=== PATIENT | female | born 1985 | race Caucasian/White ===

== ENCOUNTER 2022-08-03 11:45 | Inpatient (IN) ==
[2022-08-03] MEDS ORDERED: Lactated Ringers 1000 ml BAG 1,000 ML IV ONE ×2 (12:35→19:15)
[2022-08-03] MEDS ORDERED: Promethazine INJ(RESTRICTED) 25 MG/ML 1 ml VIAL IV PRN (12:35)
[2022-08-03] MEDS ORDERED: Nalbuphine 10 MG/ML 1 ML VIAL IV PRN (12:35)
[2022-08-03] MEDS ORDERED: Buffered Lidocaine 1% SYRIN 1 ml INTRADERM ONE (12:35)
[2022-08-03] MEDS ORDERED: ceFAZolin 2 GM PREMIX 2 GM/50 ML BAG IVPB ONE (12:41)
[2022-08-03] MEDS ORDERED: Oxytocin in LR 20,000 MILLI.UNIT/1,000 ML BAG IV SCH ×2 (12:45→23:45)
[2022-08-03 13:08] LABS: ABS Eosinophils 0.1 10^3/uL (0.0-0.5); ABS Lymphocytes 1.7 10^3/uL (1.0-4.8); ABS Monocytes 0.5 10^3/uL (0.0-0.9); ABS Neutrophils 9.7 10^3/uL (1.5-7.6); ABS Nucleated RBC 0.01 10^3/ul; Eosinophil % 0.6 %; Hematocrit 37.3 % (35-45); Hemoglobin 12.8 g/dL (11.5-14.3); Lymphocyte % 14.4 %; Mean Corpuscular Hemoglobin 30.9 pg (27-33); Mean Corpuscular Hgb Conc 34.5 g/dL (31-36); Mean Corpuscular Volume 89.7 fL (80-97); Mean Platelet Volume 8.9 fL (7.5-11.2); Nucleated Red Blood Cells % 0.1 /100 WBC (0.0-0.4); Platelet Count 206 10^3/uL (150-450); Red Blood Count 4.15 10^6/uL (3.63-4.92); Red Cell Distribution Width 16.4 % (12-17); White Blood Count 12.1 10^3/uL (3.8-11.8)
[2022-08-03 13:41] LABS: Albumin 3.5 g/dL (3.2-5.2); Albumin/Globulin Ratio 1.2 (1-3); Calcium 9.2 mg/dL (8.6-10.3); Creatinine, Serum 0.56 mg/dL (0.51-0.95); Globulin 2.9 g/dL (2-4); Potassium 3.8 mmol/L (3.5-5.0); Total Bilirubin 0.4 mg/dL (0.2-1.0); Total Protein 6.4 g/dL (6.4-8.9); Uric Acid 4.4 mg/dL (2.3-6.6); eGFR CKD-EPI 121.2 (>60)
[2022-08-03 14:00] LABS: Urine Appearance Clear; Urine Bilirubin Negative (Negative); Urine Blood Negative (Negative); Urine Color Straw; Urine Glucose Negative (Negative); Urine Ketones Negative (Negative); Urine Nitrite Negative (Negative); Urine Protein Negative (Negative); Urine Specific Gravity 1.004 (1.002-1.030); Urine Urobilinogen Negative (Negative)
[2022-08-03 14:09] LABS: Urine Bacteria 1+ (Absent); Urine Red Blood Cell Absent (Absent); Urine Squamous Epithelial Cell Present (Absent); Urine White Blood Cell Trace(0-5/hpf) (Absent)
[2022-08-03 14:10] LABS: Urine Benzodiazepine Screen None Detected (None Detect); Urine Cannabinoids Screen None Detected (None Detect); Urine Opiates Screen None Detected (None Detect)
[2022-08-03] MEDS: Lactated Ringers 1000 ml BAG 1,000 ML IV SCH ×2 (17:50→19:26)
[2022-08-03] MEDS ORDERED: Lidocaine 1.5% EPI 1:200,000 30 ML SDV ONE (18:05)
[2022-08-03] MEDS ORDERED: OBEPIDURAL (200 ML) 200 ML EPIDURAL ONE (18:05)
[2022-08-03] MEDS ORDERED: Sodium Citrate/Citric Acid LIQ 15 ML UDC PO PRN (19:15)
[2022-08-03] MEDS ORDERED: Lactated Ringers 1000 ml BAG 500 ML IV PRN ×2 (19:15)
[2022-08-03] MEDS ORDERED: Phenylephrine 40 mcg/mL 10mL (400mcg) SYRINGE IV PUSH PRN ×2 (19:15)
[2022-08-03] MEDS ORDERED: Lactated Ringers 1000 ml BAG 1,000 ML IV SCH ×2 (20:00→23:45)
[2022-08-03] MEDS ORDERED: OBEPIDURAL (200 ML) 200 ML EPIDURAL SCH (20:00)
[2022-08-03] MEDS ORDERED: ceFAZolin VIAL 1 GM in NS 0.9% 50 ML 50 ML IVPB SCH (22:00)
[2022-08-03] MEDS ORDERED: Dibucaine 1% OINT 28.35 GM TUBE PR PRN (23:56)
[2022-08-03] MEDS ORDERED: RHO D Immune Globulin (HUMAN) 300 MCG = 1,500 I.U. INJ IM PRN (23:56)
[2022-08-03] MEDS ORDERED: Witch Hazel PAD JAR TOPICAL PRN (23:56)
[2022-08-03] MEDS ORDERED: Glycerin ADULT 2.4 gm SUPP PR PRN (23:56)
[2022-08-04 07:52] LABS: ABS Basophils 0.1 10^3/uL (0.0-0.1); ABS Eosinophils 0.1 10^3/uL (0.0-0.5); ABS Monocytes 0.7 10^3/uL (0.0-0.9); ABS Neutrophils 11.5 10^3/uL (1.5-7.6); ABS Nucleated RBC 0.01 10^3/ul; Eosinophil % 0.9 %; Hematocrit 34.1 % (35-45); Hemoglobin 11.8 g/dL (11.5-14.3); Lymphocyte % 13.8 %; Mean Corpuscular Hemoglobin 31.1 pg (27-33); Mean Corpuscular Hgb Conc 34.6 g/dL (31-36); Mean Corpuscular Volume 89.8 fL (80-97); Mean Platelet Volume 8.9 fL (7.5-11.2); Platelet Count 166 10^3/uL (150-450); Red Cell Distribution Width 15.9 % (12-17); White Blood Count 14.4 10^3/uL (3.8-11.8)
[2022-08-05 08:52] VITALS: BP 122/65
[2022-08-06 13:33] LABS: Coagulation F VIII Activity 147 % (55 - 200); von Willebrand Factor Activity 165 % (55 - 200)
== END 2022-08-05 17:45 | disposition home or self-care (01) | DRG 807 ==
LOC: MCHOBOUT 11:45 → MCHOB 13:31
PROVIDERS: ADMIT Obstetrics & Gynecology; ATTEND Obstetrics & Gynecology